=== PATIENT | female | born 1995 | race Caucasian/White ===

== ENCOUNTER 2022-04-14 17:49 | Emergency (ER) | payer MEDICAID ==
[2022-04-14] MEDS: Ondansetron 4 MG Tab.DIS PO ONE (18:46)
== END 2022-04-14 19:23 | disposition home or self-care (01) ==
LOC: JP.ED 17:49
DX: A08.4 Viral intestinal infection, unspecified (principal); Z90.49 Acquired absence of other specified parts of digestive tract; Z20.822 Contact with and (suspected) exposure to COVID-19
CPT/HCPCS: 87635; 99284; Q0162; U0002